=== PATIENT | male | born 1955 | race Caucasian/White ===

== ENCOUNTER 2020-11-18 12:41 | Emergency (ER) | payer SELFPAY ==
[~2020-11-18] VITALS: Ht 167.6 cm; Wt 68.2 kg
[2020-11-18] MEDS ORDERED: ALBU8.5H INH (13:00)
--- NOTE | 2020-11-18 13:41 | REP ---
INDICATION: DYSPNEA/COUGH. COMPARISON: None. TECHNIQUE: Single portable AP view of the chest was performed. FINDINGS: Patchy infiltrative opacities are seen in the right mid and lower lung zones as well as the left lower lung zone. There is a 5 cm ring-like opacity in the left apex which could represent a cavitating lesion. The heart is not enlarged. The mediastinal silhouette appears unremarkable. Blunting of the costophrenic angles suggests small pleural effusions bilaterally. IMPRESSION: Patchy infiltrates bilateral lower lungs. Irregular ring-like opacity in the left apex could represent a cavitating lesion. Small amount of bilateral pleural fluid or thickening. <Electronically signed by Tahir Lucero > 11/18/20 [id number]
[2020-11-18 14:26] LABS: BASO % 0.2 % (0.0-1.0); EOS # 0.1 10^3/uL (0.0-0.5); EOS % 0.5 % (0.0-3.0); HEMATOCRIT 36.1 % (42.0-52.0); HEMOGLOBIN 11.9 g/dl (13.5-17.5); LYMPH % 5.4 % (24.0-44.0); MEAN CORPUSCULAR HEMOGLOBIN 30.4 pg (27.0-33.0); MEAN CORPUSCULAR VOLUME 92.1 fl (80.0-96.0); MONO # 2.5 10^3/uL (0.0-0.8); PLATELET COUNT, AUTOMATED 403 10^3/uL (150-450); RED BLOOD COUNT 3.92 10^6/uL (4.30-6.10)
[2020-11-18 14:39] LABS: INR 1.1; PROTHROMBIN TIME 14.4 SECONDS (12.5-14.3)
[2020-11-18 14:41] LABS: PARTIAL THROMBOPLASTIN TIME 49.2 SECONDS (24.2-38.5)
[2020-11-18 14:42] LABS: D-DIMER QUANT 2449.01 ng/ml (<500)
[2020-11-18 14:50] LABS: FERRITIN 1098 NG/ML (26-388); LDH LACTATE DEHYDROGENASE 205 U/L (87-241); MONO % 13.2 % (2.0-8.0); WHITE BLOOD COUNT 18.7 10^3/uL (4.0-10.0)
[2020-11-18 14:53] LABS: ALT/SGPT 16 U/L (12-78); BILIRUBIN,DIRECT 0.2 MG/DL (0.0-0.2); BILIRUBIN,TOTAL 0.6 MG/DL (0.2-1.0); BLOOD UREA NITROGEN 34 MG/DL (7-18); CALCIUM LEVEL 9.5 MG/DL (8.8-10.2); CARBON DIOXIDE LEVEL 29 MEQ/L (21-32); CHLORIDE LEVEL 94 MEQ/L (98-107); CK-MB VALUE MASS 1.2 NG/ML (<3.6); CPK CREATINE PHOSPHOKINASE 96 U/L (39-308); CREATININE FOR GFR 0.93 MG/DL (0.70-1.30); GLOMERULAR FILTRATION RATE > 60.0 (>49); GLUCOSE, FASTING 111 MG/DL (70-100); MB/CK RELATIVE INDEX 1.25 (< OR =4); SODIUM LEVEL 133 MEQ/L (136-145); TROPONIN I 0.28 NG/ML (< 0.10)
[2020-11-18] MEDS ORDERED: ISOVUE-370 76% 100ML VIAL As Ordered ONE (15:27)
--- NOTE | 2020-11-18 16:24 | REP ---
INDICATION: ? new cavitary lesion PAMELA, recent Dx PEs. COMPARISON: None. TECHNIQUE: CT angiogram chest performed following the intravenous administration of 100 cc of Isovue 370. Sagittal and coronal reconstruction images are performed. FINDINGS: There is diffuse moderate emphysematous and fibrotic change, with biapical bullae more so on the left than on the right. Diffuse ill-defined consolidative parenchymal opacity is seen throughout the left upper lobe with mild diffuse thickening of the wall of a dominant bulla the left apex which measures approximately 4.4 cm in diameter. In the remaining, more inferior left lung there are scattered patchy parenchymal opacities with an appearance most consistent with scattered diffuse infiltrates. There is a focal nodular opacity in the left lower lobe on image 71, with somewhat irregular margins, maximum diameter is 1.6 cm. There are scattered patches of infiltrate throughout the right lung. There are multiple nodules throughout the right lung. An oval nodular opacity in the right upper lobe on image 19 demonstrates central cavitation and measures 1.8 cm maximally. An irregular nodular opacity peripherally in the right upper lobe on image 44 measures about 1.6 cm in diameter. There is cavitating irregular nodule just inferior to that in the right upper lobe measuring approximately 2.4 cm in diameter, the epicenter is on image 46. Multiple smaller nodules are seen in the right lower lobe, approximately 5 in number, largest is approximately 1.3 cm in diameter on image 50 and the others are slightly less than 1 cm in diameter, located more inferiorly. There is no evidence of thoracic aortic aneurysm or dissection. There is no pulmonary embolism. The heart is not enlarged. There is no pleural or pericardial effusion. There is a mildly enlarged right hilar lymph node 1.3 cm in short axis dimension. I see no other adenopathy. There are mild degenerative changes of the spine without compression deformity. IMPRESSION: No CT evidence of pulmonary embolism. No evidence of aortic aneurysm or dissection. Diffuse underlying moderate emphysematous and fibrotic change with scattered bullae in the left lung. There is diffuse consolidative parenchymal opacity representing atelectasis or infiltrate throughout the left upper lobe. There is wall thickening of a dominant bulla in the left apex. There are diffuse patchy parenchymal opacities bilaterally, felt to represent inflammatory infiltrates. There are multiple focal irregular nodular opacities, predominantly in the right lung, and 1 in the left lower lobe. Two of the nodules in the right upper lobe demonstrates central cavitation. There is a mildly enlarged right hilar lymph node. The findings most likely represent inflammatory/infectious etiology, however, given the focal parenchymal nodules, neoplasm must be excluded. <Electronically signed by Tahir Lucero > 11/18/20 [id number]
[2020-11-18] MEDS ORDERED: AMLO1TAB25 PO (16:29)
[2020-11-18] MEDS ORDERED: TIOT18INH INH (16:29)
[2020-11-18] MEDS ORDERED: IPRAINH INH (16:29)
[2020-11-18] MEDS ORDERED: TELM1TAB37 PO (16:29)
[2020-11-18] MEDS ORDERED: FLUT1BLS2 INH (16:29)
[2020-11-18] MEDS ORDERED: XARE20TA PO (16:29)
[2020-11-18] MEDS ORDERED: VENTAER INH (16:29)
[2020-11-18] MEDS ORDERED: cefTRIAXone SOD 1 GM in D5W MINI-BAG PLUS 50 ML IV ONE (16:45)
[2020-11-18] MEDS ORDERED: AZITHROMYCIN INJ 500 MG, VIAL MATE ADAPTER 1 EACH in NS 250 ML IV ONE (16:45)
--- NOTE | 2020-11-18 17:16 | ECGEPIP ---
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
[2020-11-18] MEDS ORDERED: methylPREDNISolone 125MG 2ML VIAL IV ONE (17:45)
--- NOTE | 2020-11-18 18:08 | CR.PDOC ---
General Date of Consultation: November 18, 2020 Referring Provider: Ariel Wu M.D. Consultation REASON FOR CONSULTATION/CHIEF COMPLAINT: Worsening dyspnea and cough HISTORY OF PRESENT ILLNESS: Mr. Sellers is a 64 year old male with COPD and untreated Jessi's disease who presents with worsening dyspnea, cough, and ni ght sweats. Patient is a [place] , but has lived in [place] with his for the past 20 years. About 12 to 13 years ago, he was diagnosed with Jessi's disease in [facility]. Then about 6 months ago, he was re-tested again and was positive for Jessi's disease. Since then his respiratory status declined, but the past week, his dyspnea has worsened. In addition, his cough became more chronic. In the past week his night sweats and fevers worsened. He could not afford veronique care in [place]. He is not a citizen and had to pay out of pocket. [place] While in the ED, his vital signs are stable while he is at rest. When he ambulates, he desaturates below 90%. On examination, he has difficulty completing sentences and is breathing hard. Lungs are course. CT of the chest demonstrates inflammatory nodules. With his B type symptoms, inflammatory nodules, and history of Jessi's disease (GPA), I reached out to [facility] for Rheumato logy. I spoke with Dr. Reardon. We discussed the case. In addition to his Jessi's disease, Dr. Reardon was also concerned about pulmonary alveolar hemorrhage. Patient is on anticoagulation for recently diagnosed PE. We do not have a welfare interviewer here, and he felt that it would be reasonable for the patient to be transferred for rheumatology evaluation. Patient will be transferred to [facility]. ALLERGIES: Please see below. HOME MEDICATIONS: Please see below. PAST MEDICAL HISTORY: 1. COPD 2. Tobacco abuse 3. Untreated Jessi's disease 4. Recently diagnosed PE on anticoagulation 5. Inguinal hernia PAST SURGICAL HISTORY: Denies any past surgical history FAMILY HISTORY: Father: Emphysema Mother: Denies knowledge of past medical history in mother SOCIAL HISTORY: Tobacco use: Current care home smoker, currently on 1 to 2 cigarettes a day ETOH: 3 beers a day Illicit drug use: Denies recreational drug use REVIEW OF SYSTEMS: CONSTITUTIONAL: Reports fever and chills, worse at night. She has night sweats that soak sheets HEENT: Denies changes in vision CARDIOVASCULAR: Reports occasional sharp chest pain. Not worse with breathing or ambulation RESPIRATORY: Worsening dyspnea with increasing productive cough GENITOURINARY: Denies dysuria GASTROINTESTINAL: Report soft stool SKIN: Denies rashes NEUROLOGICAL: Denies neuropathy HEMATOLOGY: Denies easy bruisability PSYCHIATRIC: Reports anxiety PHYSICAL EXAMINATION: VITAL SIGNS: Please see below. GENERAL APPEARANCE: Mild respiratory distress. Tripoding and having trouble completing sentences HEENT: Sclera clear. EOMI RESPIRATORY: Diminished breath sounds CARDIOVASCULAR: Sinus tachycardia ABDOMEN: Soft, non-tender, normal bowel sounds EXTREMITIES: No pitting edema NEUROLOGICAL: CN 3-12 grossly intact PSYCHIATRIC: Normal mood and affect LABORATORY DATA: Please see below. ASSESSMENT/PLAN: 1. Jessi's disease -B-type symptoms, leukocytosis, inflammatory pulmonary nodules, history of untreated Jessi's disease -We do not have a welfare interviewer here. Spoke with Dr. Reardon who agreed with transfer. -Will give 1mg/kg of IV solumedrol 2. COPD exacerbation -May be COPD exacerbation vs worsening of Jessi's -IV ceftriaxone and IV azithromycin -IV steroids 3. Recent PE -Patient is currently on Xarelto for PE -May increase the risk for alveolar hemorrhage 4. Hypertension -On amlodipine and telmisartan 5. DVT ppx -On Xarelto Patient will be transferred to [facility] for further evaluation by rheumatology Vital Signs/I&O Vital Signs Date Time Temp Pulse Resp B/P (MAP) Pulse Ox O2 Delivery O2 Flow Rate FiO2 11/18/20 14:40 11/18/20 12:43 97.9 104 26 94 Room Air Laboratory Data Labs 24H Laboratory Tests 2 11/18/20 14:04: Immature Granulocyte % (Auto) 0.7, Neutrophils (%) (Auto) 80.0H, Lymphocytes (%) (Auto) 5.4L, Monocytes (%) (Auto) 13.2H, Eosinophils (%) (Auto) 0.5, Basophils (%) (Auto) 0.2, Neutrophils # (Auto) 15.0H, Lymphocytes # (Auto) 1.0L, Monocytes # (Auto) 2.5H, Eosinophils # (Auto) 0.1, Basophils # (Auto) 0.0, Nucleated Red Blood Cells % (auto) 0.0, Prothrombin Time 14.4H, Prothromb Time International Ratio 1.10, Activated Partial Thromboplast Time 49.2H, D-Dimer, Quantitative 2449.01H, Anion Gap 10, Glomerular Filtration Rate > 60.0, Lactic Acid Level 2.3*H, Calcium Level 9.5, Ferritin 1098H, Total Bilirubin 0.6, Direct Bilirubin 0.2, Aspartate Amino Transf (AST/SGOT) 18, Alanine Aminotransferase (ALT/SGPT) 16, Alkaline Phosphatase 98, Lactate Dehydrogenase 205, Total Creatine Kinase 96, Creatine Kinase MB 1.2, Creatine Kinase MB Relative Index 1.25, Troponin I 0.28H, Total Protein 7.0, Albumin 3.0L, Albumin/Globulin Ratio 0.8 11/18/20 14:31: POC pH (Misc Panel) 7.466H, POC Base Excess (Misc Panel) 3.0, POC Saturated Percent O2 (Misc) 93L, POC pO2 (Misc Panel) 63.0L, POC pCO2 (Misc Panel) 36.8, POC HCO3 (Misc Panel) 26.5H, POC Total CO2 (Misc Panel) 28.0H CBC/BMP Laboratory Tests 11/18/20 14:04 Microbiology Microbiology 11/18/20 Respiratory Virus Panel (PCR) (SARAH) - Final, Complete 11/18/20 Blood Culture, Received Pending 11/18/20 Blood Culture, Received Pending Allergies Coded Allergies: No Known Allergies (Unverified , 11/18/20) Home Medications Scheduled Amlodipine Besylate (Amlodipine Besylate) 10 Mg Tablet, 10 MG PO DAILY, (Reported) Fluticasone Propion/Salmeterol (Wixela 250-50 Inhub) 1 Each Blst.w.dev, 1 PUFF INH BID, (Reported) Rivaroxaban (Xarelto) 20 Mg Tablet, 20 MG PO QHS, (Reported) Telmisartan (Telmisartan) 80 Mg Tablet, 80 MG PO DAILY, (Reported) Tiotropium Pitman Monohydrate (Spiriva) 18 Mcg Cap.w.dev, 18 MCG INH DAILY, (Re ported) Scheduled PRN Albuterol Sulfate (Ventolin Hfa) 18 Gm Hfa.aer.ad, 2 PUFF INH Q4H PRN for SOB/WHEEZING, (Reported) Ipratropium Pitman (Atrovent Hfa) 12.9 Gm Hfa.aer.ad, 2 PUFF INH QID PRN for SOB/WHEEZING, (Reported) JERRY CALVILLO DO November 18, 2020 18:08
[2020-11-18 20:30] VITALS: BP 135/64
== END 2020-11-18 20:55 | disposition short-term general hospital (02) ==
LOC: M ED 12:41 → CANBEDREQ 18:22 → M ED 20:55
DX: J18.9 Pneumonia, unspecified organism (principal); M31.30 Wegener's granulomatosis without renal involvement; J98.4 Other disorders of lung; F10.10 Alcohol abuse, uncomplicated; J44.9 Chronic obstructive pulmonary disease, unspecified; Z86.711 Personal history of pulmonary embolism; Z79.899 Other long term (current) drug therapy; Z79.01 Long term (current) use of anticoagulants; F17.210 Nicotine dependence, cigarettes, uncomplicated
CPT/HCPCS: 36600; 71045; 71275; 80048; 80076; 82550; 82553; 82728; 82803; 83605; 83615; 84484; 85025; 85379; 85610; 85730; 87040; 87798; 93005; 93041; 94760; 96365; 96366; 96375; 99285; J0456; J0696; J2930; Q9967